=== PATIENT | male | born 1960 | race Two or more races ===

== ENCOUNTER 2019-11-08 14:55 | Emergency (ER) | payer OTHER, BC ==
[2019-11-08] MEDS ORDERED: SODIUM CHLORIDE 1,000 ML IV STA (15:26)
[2019-11-08] MEDS ORDERED: ONDANSETRON 4 MG/2 ML VIAL IVPUSH ONE (15:26)
--- NOTE | 2019-11-08 15:26 | PDOC ---
Rapid Medical Evaluation Chief Complaint: Pain Time Seen by Provider: 11/08/19 15:24 Medical Evaluation: Allergies Allergy/AdvReac Type Severity Reaction Status Date / Time No Known Allergies Allergy Verified 11/08/19 15:24 11/08/19 15:24 Pt c/o: vomiting and diarrhea since this am, abd fullness, bgm 121 Pt on brief exam: 135, Pt ordered for: cbc, comp, ivf, zofran, iv Pt to proceed to the ED 11/08/19 15:25 Discharge Disposition - Diagnosis Vomiting - Discharge Dispostion Disposition: ELOPED - Referrals Referrals: Aurelia Fuentes MD [Primary Care Provider] - - Patient Instructions - Post Discharge Activity
[2019-11-08 15:31] VITALS: BP 139/76; PULSE 135; TEMP 99.2; BMI 27.3
[2019-11-08] MEDS ORDERED: ACETAMINOPHEN 1000 MG/100 ML VIAL (NON FORMULARY) IVPB ONE (15:36)
[2019-11-08 16:05] LABS: BASO % 0.2 % (0-2.0); EOS % 1.4 % (0-4.5); HEMOGLOBIN 17.4 GM/dL (11.7-16.9); LYMPH % 5.1 % (8-40); MCH 31.8 pg (25.7-33.7); MCHC 34.1 g/dl (32.0-35.9); MEAN CELL VOLUME 93.4 fl (80-96); MEAN PLT VOLUME 8.8 fl (7.5-11.1); MONO % 5.1 % (3.8-10.2); NEUT % 88.2 % (42.8-82.8); PLATELET COUNT 177 K/MM3 (134-434); RBC 5.46 M/mm3 (4.00-5.60); RDW 13.7 % (11.9-15.9); WHITE BLOOD COUNT 7.6 K/mm3 (4.0-10.0)
[2019-11-08 16:30] LABS: ALBUMIN 4.1 g/dl (3.4-5.0); BLOOD UREA NITROGEN 21.3 mg/dL (7-18); CREATININE 0.8 mg/dL (0.55-1.3); POTASSIUM 4.1 mmol/L (3.5-5.1); TOT PROT 7.1 g/dl (6.4-8.2)
[2019-11-08] MEDS ORDERED: ACETAMINOPHEN INJECTION 100 ML IVPB ONE (17:57)
[2019-11-08] MEDS ORDERED: ONDANSETRON 4 MG/2 ML VIAL ONE (17:57)
== END 2019-11-08 19:15 | disposition left against medical advice (07) ==
LOC: JER 14:55
PROC: 3E033NZ Introduction of Analgesics, Hypnotics, Sedatives into Peripheral Vein, Percutaneous Approach (ICD-10-PCS; principal; 2019-11-08)
PROC: 3E033GC Introduction of Other Therapeutic Substance into Peripheral Vein, Percutaneous Approach (ICD-10-PCS; 2019-11-08)
DX: R11.10 Vomiting, unspecified (principal)
CPT/HCPCS: 36415; 80053; 85025; 96374; 96375; 99282-25; J0131; J7030